=== PATIENT | female | born 1995 | race American Indian/Alaskan Native ===

== ENCOUNTER 2017-11-11 09:09 | Emergency (ER) | payer SELFPAY ==
[2017-11-11 09:20] VITALS: BP 119/81
[2017-11-11] MEDS ORDERED: MOTRIN PO ONE (11:29)
--- NOTE | 2017-11-11 11:56 | Emergency Department Report ---
Minor Respiratory - HPI Chief Complaint: Earache Stated Complaint: EAR PAIN Time Seen by Provider: 11/11/17 11:00 Duration: 2 Days Pain Location: Ear Severity: moderate Minor Respiratory: Yes Able to Tolerate Fluids, Yes Ear Pain, No Rhinorrhea, No Sore Throat, No Cough, No Sick Contacts, No Hemoptysis, No Chest Pain, No Shortness of Breath, No Fever ED Review of Systems ROS: Stated complaint: EAR PAIN Other details as noted in HPI Comment: All other systems reviewed and negative ENT: ear pain (l more than r; hx impactions) ED Past Medical Hx - Past Medical History Previous Medical History?: Yes Hx Hypertension: No Hx Congestive Heart Failure: No Hx Diabetes: No Hx Deep Vein Thrombosis: No Hx Renal Disease: No Hx Sickle Cell Disease: No Hx Seizures: No Hx Asthma: No Hx COPD: No Hx HIV: No Additional medical history: Anemia, left earache - Surgical History Past Surgical History?: No - Social History Smoking Status: Never Smoker Substance Use Type: Alcohol - Medications Home Medications: Home Medications Medication Instructions Recorded Confirmed Last Taken Type Amoxicillin 500 mg PO BID #20 capsule 11/11/17 Unknown Rx Minor Respiratory Exam - Exam General: Vital signs noted. No distress. Alert and acting appropriately. HEENT: Yes Moist Mucous Membranes, No Pharyngeal Erythema, No Pharyngeal Exudates, No Rhinorrhea, No Conjuctival Injection, No Frontal Tenderness, No Maxillary Tenderness Ear: Both EAC Discharge Neck: Yes Supple, No Adenopathy Lungs: Yes Good Air Exchange, No Wheezes, No Ronchi, No Stridor, No Cough, No Labored Respirations, No Retractions, No Use of Accessory Muscles, No Other Abnormal Lung Sounds Heart: Yes Regular, No Murmur Abdomen: Yes Normal Bowel Sounds, No Tenderness, No Peritoneal Signs Skin: No Rash, No Edema Neurologic: Alert and oriented, no deficits. Musculoskeletal: Unremarkable. ED Course Vital Signs 11/11/17 09:15 Temperature 97.8 F Pulse Rate 87 Respiratory 20 Rate Blood Pressure 119/81 O2 Sat by Pulse 99 Oximetry - Reevaluation(s) Reevaluation #1: 11/11/17 11:56 to er w ear pain l more than r hx ongoing wax impactions both ears impacted flushed l ear red tm of om no fever non toxic educated dc home w ent follow up ED Medical Decision Making - Medical Decision Making see note - Differential Diagnosis om v impaction Critical care attestation.: If time is entered above; I have spent that time in minutes in the direct care of this critically ill patient, excluding procedure time. ED Disposition Clinical Impression: Impacted ear wax, Otitis media Disposition: TO HOME OR SELFCARE Is pt being admited?: No Does the pt Need Aspirin: No Condition: Stable Instructions: Cerumen Impaction (ED), Otitis Media in Children (ED) Additional Instructions: no q tips in ears medication as ordered today you can by CERUMENEX over the counter to use on routine basis to prevent your ear wax impactions follow up with Ear doctor, see name below, within 2 weeks to be sure infection is gone hydrate with water well motrin or tylenol over the counter for pain Referrals: JOSÉ MIGUEL GOINS MD [Staff Physician] - 3-5 Days [facility], [Primary Care Provider] - 3-5 Days ANDRESSA RICHARDS MD [Staff Physician] - 3-5 Days Time of Disposition: 11:52
== END 2017-11-11 12:23 | disposition home or self-care (01) ==
LOC: ED 09:09
DX: H61.23 Impacted cerumen, bilateral (principal); H66.93 Otitis media, unspecified, bilateral; Z86.2 Personal history of diseases of the blood and blood-forming organs and certain disorders involving the immune mechanism
CPT/HCPCS: 99282

== ENCOUNTER 2021-07-18 16:02 | Emergency (ER) | payer SELFPAY ==
[2021-07-18 16:24] VITALS: BP 116/68
[2021-07-18 17:19] LABS: Basophils # (Auto) 0.1 K/mm3 (0.0-0.1); Basophils % (Auto) 0.7 % (0.0-1.8); Eosinophils # (Auto) 0.1 K/mm3 (0.0-0.4); Eosinophils % (Auto) 1.4 % (0.0-4.3); Hematocrit 37.9 % (30.3-42.9); Hemoglobin 13.5 gm/dl (10.1-14.3); Lymphocytes % (Auto) 26.4 % (13.4-35.0); Mean Corpuscular HGB Conc 36 % (30-34); Mean Corpuscular Volume 93 fl (79-97); Monocytes # (Auto) 0.5 K/mm3 (0.0-0.8); Monocytes % (Auto) 7.2 % (0.0-7.3); Platelet Count 322 K/mm3 (140-440); Red Blood Count 4.06 M/mm3 (3.65-5.03)
[2021-07-18 17:39] LABS: Alanine Aminotransferase 8 units/L (7-56); Blood Urea Nitrogen 6 mg/dL (7-17); Calcium 9.4 mg/dL (8.4-10.2); Hemolysis Index 5
[2021-07-18 17:41] LABS: BUN/Creatinine Ratio 10
[2021-07-18 20:56] LABS: Bilirubin,Urine NEG (Negative); Blood,Urine NEG (Negative); Color,Urine Yellow (Yellow); Mucus,Urine FEW /HPF; Protein,Urine <15 mg/dL mg/dL (Negative); Urobilinogen,Urine < 2.0 mg/dL (<2.0)
[2021-07-18 20:59] LABS: RBC,Urine < 1.0 /HPF (0.0-6.0)
--- NOTE | 2021-07-18 21:27 | Emergency Department Report ---
ED General Adult HPI - General Chief complaint: Nausea/Vomiting/Diarrhea Stated complaint: 8WEEKS /NAUSEA VOMITING Time Seen by Provider: 07/18/21 19:02 Source: patient Mode of arrival: Ambulatory Limitations: No Limitations - History of Present Illness Initial comments: 25-year-old female patient presents to the emergency department with complaints of nausea for 1 week. Patient states she only vomits when she drinks water. She is able to keep down Powerade. Patient states she was admitted to the hospital for hyperemesis during one of her earlier pregnancies. She is not currently taking any antiemetics. Patient was evaluated at a local clinic and informed she was 8 weeks along. Patient is scheduled for her next OB follow-up on August 05. Denies fever, chills, abdominal pain, pelvic pain, vaginal bleeding, loss of vaginal fluid. Denies all other complaints at this time. - Related Data Previous Rx's Medication Instructions Recorded Last Taken Type Amoxicillin 500 mg PO BID #20 capsule 11/11/17 Unknown Rx Doxylamine Succinate/Vit B6 2 tab PO QHS #14 tablet. 07/18/21 Unknown Rx [Doxylamine-Pyridoxine 10-10 mg] Allergies Allergy/AdvReac Type Severity Reaction Status Date / Time No Known Allergies Allergy Verified 04/28/15 17:33 ED Review of Systems ROS: Stated complaint: 8WEEKS /NAUSEA VOMITING Other details as noted in HPI Other: GENERAL: Negative for fever, chills, weight change, anorexia, fatigue. ENT: Negative for ear pain, difficulty hearing, sore throat, nasal congestion, epistaxis. CARDIOVASCULAR: Negative for chest pain, palpitations, lower extremity swelling. PULMONARY: Negative for cough, dyspnea, wheezing, orthopnea, cyanosis. GASTROINTESTINAL: Positive for nausea and vomiting. MUSCULOSKELETAL: Negative for joint pain, joint swelling, myalgias, back pain, neck pain. NEUROLOGICAL: Negative for headache, seizure, syncope, paresthesias, weakness. INTEGUMENTARY: Negative for erythema, rash, diaphoresis, laceration, ecchymosis. HEMATOLOGICAL: Negative for hemoptysis, hematemesis, hematochezia, hematuria. PSYCHIATRIC: Negative for hallucinations, suicidal ideation, homicidal ideation, anxiety, depression. ED Past Medical Hx - Past Medical History Previous Medical History?: No Hx Hypertension: No Hx Congestive Heart Failure: No Hx Diabetes: No Hx Deep Vein Thrombosis: No Hx Renal Disease: No Hx Sickle Cell Disease: No Hx Seizures: No Hx Asthma: No Hx COPD: No Hx HIV: No Additional medical history: Anemia, left earache - Social History Smoking Status: Never Smoker Substance Use Type: Alcohol - Medications Home Medications: Home Medications Medication Instructions Recorded Confirmed Last Taken Type Amoxicillin 500 mg PO BID #20 capsule 11/11/17 Unknown Rx Doxylamine Succinate/Vit B6 2 tab PO QHS #14 tablet. 07/18/21 Unknown Rx [Doxylamine-Pyridoxine 10-10 mg] ED Physical Exam - General Limitations: No Limitations - Other Other exam information: General: Awake and alert. No acute distress. Head: Atraumatic, normocephalic. Eyes: EOMI. Pupils are equal and round. Normal sclera and conjunctiva. ENT: Oral mucosa is moist. Normal pharyngeal exam. Neck: Supple. No lymphadenopathy. Pulmonary: No respiratory distress. Clear to auscultation bilaterally. Cardiac: Regular rate and rhythm. Pulses are palpable and equal bilaterally. No lower extremity cyanosis or edema. Skin: Warm and dry. No rashes. Abdomen: Soft, non-tender, non-protuberant. No guarding, rigidity, or rebound. Bowel sounds are normal. No organomegaly or masses noted. Back: Normal alignment. No CVA tenderness. Extremities: Symmetrical. Full range of motion intact. Neurological: Alert and oriented, appropriately interactive, no focal deficits. Psych: Cooperative. Appropriate mood and affect. Speech is evenly metered. Thoughts are logically construed. ED Course Vital Signs 07/18/21 16:23 Temperature 98.3 F Pulse Rate 63 Respiratory 18 Rate Blood Pressure 116/68 O2 Sat by Pulse 99 Oximetry ED Medical Decision Making - Lab Data Result diagrams: 07/18/21 17:01 07/18/21 17:01 - Medical Decision Making Differential diagnosis including but not limited to: hyperemesis gravidarum, dehydration, electrolyte abnormality, hypoglycemia, urinary tract infection, pyelonephritis, ectopic , pelvic inflammatory disease On reevaluation, patient remains stable. Repeat abdominal exam is benign. No vomiting in the emergency department. Patient is tolerating oral intake without difficulty. She is afebrile. Vital signs are stable. Labs are unremarkable. Urinalysis is within normal limits. Patient has no abdominal pain. There is no clinical indication for further diagnostic work-up on an emergent basis at this time. Patient will be discharged home with appropriate first-line antiemetics and referred to second worker for close outpatient follow-up. Patient expressed understanding and is agreeable to plan of care. Dietary modifications discussed. Strict return precautions provided. Repeat exam is unremarkable and benign. History, exam, diagnostic testing, and current condition do not suggest worrisome pathology to warrant further testing, continued ED treatment, admission, or surgical evaluation at this point. Given the low probability of a significant medical illness, it would be more likely to result in harm than benefit to perform further testing at this stage. Discussed findings, presumptive diagnosis, need for follow-up and specific signs/symptoms that should prompt immediate return to the emergency department. Instructions were explained in detail to the patient in addition to giving written discharge information. Patient expressed understanding and was given the opportunity to ask questions, all of which were satisfactorily answered prior to discharge home. Critical care attestation.: If time is entered above; I have spent that time in minutes in the direct care of this critically ill patient, excluding procedure time. ED Disposition Clinical Impression: Nausea/vomiting in Disposition: 01 HOME / SELF CARE / HOMELESS Is pt being admited?: No Does the pt Need Aspirin: No Condition: Stable Instructions: Hyperemesis Gravidarum Additional Instructions: Take Doxylamine-Pyridoxine as directed. Rest. Drink plenty of fluids. Gradually advance diet slowly as tolerated. Take vitamins as directed. Please avoid smoking, drugs, caffeine, and alcohol. Eat a well-balanced diet. Do not eat shellfish. Drink plenty of fluids. Follow up with [facility] this week. Call tomorrow to schedule an appointment. Do not take anything except Tylenol for pain without consulting your [facility]. Return to the Emergency Department for severe abdominal pain, loss of fluid, vaginal bleeding or any other concerns. Prescriptions: Doxylamine Succinate/Vit B6 [Doxylamine-Pyridoxine 10-10 mg] 2 tab PO QHS #14 tablet. Referrals: STACY JACKSONSPIVEY MD JAYY [Primary Care Provider] - 3-5 Days Forms: Work/School Release Form(ED) Time of Disposition: 22:05
== END 2021-07-18 22:14 | disposition home or self-care (01) ==
LOC: ED 16:02
DX: O21.8 Other vomiting complicating pregnancy (principal); Z3A.08 8 weeks gestation of pregnancy; Z79.899 Other long term (current) drug therapy
CPT/HCPCS: 36415; 80053; 81001; 83690; 84702; 85025